=== PATIENT | female | born 1935 | race Caucasian/White ===

== ENCOUNTER 2018-02-07 02:22 | Emergency (ER) | payer MEDICARE, OTHER ==
[~2018-02-07] VITALS: Ht 160 cm; Wt 89.8 kg
[~2018-02-07 02:22] MED LIST: ADULT LOW DOSE81 MG PO; ALENDRONATE PO; ALLEGRA ALLERG180 MG PO; ALLEGRA180 MG PO; AMLODIPINE BESY10 MG PO; AMLODIPINE BESYL5 MG PO; APAP650 PO; ASPIRIN EC325 M1 PO; ASPIRIN EC81 M1 PO; BENADRYL25 MG PO; BONIVA150 MG PO; CLARITIN10 MG PO; CO Q-10100 MG PO; COLACE 100 MG100 MG PO; COZAAR100 MG PO; ENOXAPARIN40 MG/0.1 SUBQ; EYE DROP TEARS15 ML OP; FEVERALL JR 32325 M1 RECTAL; FISH OIL 1,0001 EAC7 PO; FISH OIL 1,0001 EAC8 PO; FOLIC ACID1 MG PO; NITROGLYCERIN0.4 MG SL; OMEGA 3 PO; PLAVIX 75 MG TA75 M1 PO; SYNTHROID112 MCG PO; TOPROL XL25 MG PO; ULTRAM 50MG TAB50 MG PO; VITAMIN D32000 UNI1 PO
[2018-02-07] MEDS ORDERED: COREG6.25 MG (02:38)
[2018-02-07] MEDS ORDERED: POTASSIUM99 M1 (02:38)
[2018-02-07] MEDS ORDERED: PREDNISONE 10 M10 MG (02:41)
[2018-02-07 03:00] LABS: URINE BILIRUBIN NEGATIVE (Negative); URINE BLOOD NEGATIVE (Negative); URINE CLARITY CLEAR; URINE COLOR YELLOW; URINE GLUCOSE-RANDOM NEGATIVE (Negative); URINE KETONES NEGATIVE (Negative); URINE NITRITE-REFLEX NEGATIVE (Negative); URINE PROTEIN NEGATIVE (Negative); URINE SPECIFIC GRAVITY 1.015 (1.005-1.030); URINE UROBILINOGEN 0.2 E.U./dl (0.2-1.0)
[2018-02-07 03:01] LABS: URINE LEUKOCYTES-REFLEX 2+ (Negative)
[2018-02-07 03:09] LABS: HEMATOCRIT 34.8 % (37.0-47.0); HEMOGLOBIN 11.1 gm/dL (12.0-15.0); MCH 24.9 pg (26.0-34.0); MCHC 32.1 g/dL (28.0-37.0); MCV 77.6 fL (80.0-100.0); MPV 7.9 fl. (7.2-11.1); NUCLEATED RBCS 0 /100WBC; PLATELET COUNT* 174 thou/uL (150-400); RBC 4.48 mil/uL (4.20-5.00); RDW-CV 17.6 % (10.5-14.5); WBC 12.6 thou/uL (4.0-11.0)
[2018-02-07 03:21] LABS: CALCIUM 8.4 mg/dL (8.5-10.1); CREATININE 1.2 mg/dL (0.6-1.3); POTASSIUM 3.3 mmol/L (3.5-5.1)
[2018-02-07 03:26] LABS: ALBUMIN 2.5 g/dL (3.4-5.0); TOTAL BILIRUBIN 0.5 mg/dL (<0.1-1.0); TOTAL PROTEIN 6.9 g/dL (6.4-8.2)
[2018-02-07 03:45] LABS: SQUAMOUS 0-3 Few /LPF (0-3)
[2018-02-07 03:47] LABS: BACTERIA-REFLEX >30 Many /HPF (None Seen); CASTS None Seen /LPF (None Seen); CRYSTALS None Seen /LPF (None Seen); MUCUS 0-3 Light strn/LPF (None Seen); URINE RBC 3-10 Few /HPF (0-2); URINE WBC-REFLEX >25 Many /HPF (0-5); WBC CLUMPS Few (None Seen)
[2018-02-07 03:58] LABS: ABSOLUTE EOSINOPHILS 0.1 thou/uL (0.0-0.7); ABSOLUTE LYMPHOCYTES 0.4 thou/uL (0.8-5.3); ABSOLUTE MONOCYTES 0.5 thou/uL (0.0-1.2); ABSOLUTE NEUTROPHILS 11.6 thou/uL (1.6-8.1); ANISOCYTOSIS Occasional; HYPOCHROMASIA 1+; TOXIC GRANULATION 1+
[2018-02-07 04:14] LABS: ESR (SEDRATE) 17 mm/hr (0-30)
[2018-02-07] MEDS ORDERED: VISTARIL 25 MG25 M1 PO (06:40)
[2018-02-07 07:38] VITALS: BP 155/56
[2018-02-11 11:12] LABS: B.burgdorf.IgG Negative (()); B.burgdorf.IgM Negative (())
== END 2018-02-07 07:38 | disposition home or self-care (01) ==
LOC: M.ERS 02:22
PROVIDERS: Personal Emergency Response Attendant
DX: R21 Rash and other nonspecific skin eruption (principal); I10 Essential (primary) hypertension; Z90.49 Acquired absence of other specified parts of digestive tract; Z90.89 Acquired absence of other organs; Z96.653 Presence of artificial knee joint, bilateral; Z88.0 Allergy status to penicillin; Z88.8 Allergy status to other drugs, medicaments and biological substances; Z91.018 Allergy to other foods; Z88.2 Allergy status to sulfonamides; Z91.011 Allergy to milk products

== ENCOUNTER → 2018-10-21 | Outpatient (CLI) | payer MEDICARE, OTHER ==
[~2018-10-21] MED LIST changes: +COREG6.25 MG; +POTASSIUM99 M1; +PREDNISONE 10 M10 MG; +VISTARIL 25 MG25 M1 PO
[2018-10-21 10:40] LABS: ALBUMIN 2.3 g/dL (3.4-5.0); ALKALINE PHOSPHATASE 69 U/L (46-116); CHOLESTEROL 170 mg/dL (<200); DIRECT BILIRUBIN 0.1 mg/dL (<0.1-0.3); HDL CHOLESTEROL 19 mg/dL (>40); LDL CHOLESTEROL 122 mg/dL (<100); SERUM ASSESSMENT Clear; SGOT 36 U/L (15-37); SGPT 17 U/L (30-65); TC:HDL 8.9 Ratio (Not establshd); TOTAL BILIRUBIN 0.5 mg/dL (<0.1-1.0); TOTAL PROTEIN 7.9 g/dL (6.4-8.2); TRIGLYCERIDE 146 mg/dL (<150); VLDL 29 mg/dL (<40)
== END ==
LOC: M.LAB 09:37
PROVIDERS: Internal Medicine Cardiovascular Disease
DX: I25.5 Ischemic cardiomyopathy (principal)